=== PATIENT | male | born 1940 | race Caucasian/White ===

== ENCOUNTER → 2016-11-04 | Outpatient (CLI) | payer BC, MEDICARE ==
--- NOTE | 2016-11-04 09:30 | RAD ---
EXAM DESCRIPTION: Foot,Right 3 Views CLINICAL HISTORY: 76 yearsMale, PAIN COMPARISON: None. IMPRESSION: Vascular calcifications noted. Probable osteopenia. Degenerative change seen within the first MTP joint and midfoot. No definitive fracture noted. No definitive radiopaque foreign body. Electronically signed by: Javier Marks MD 11/04/2016 9:29 AM TECHNICAL PROFESSIONAL
== END | disposition home or self-care (01) ==
LOC: RAD 07:35
PROVIDERS: ATTEND Orthopaedic Surgery
DX: M79.671 Pain in right foot (principal)

== ENCOUNTER → 2017-06-26 | Outpatient (CLI) | payer MEDICARE | END | disposition home or self-care (01) | LOC: GMAB 10:46 | PROVIDERS: ATTEND Family Medicine | DX: Z12.5 Encounter for screening for malignant neoplasm of prostate (principal); I10 Essential (primary) hypertension; R94.6 Abnormal results of thyroid function studies | CPT/HCPCS: 84439; 84443; 84481; G0103 ==

== ENCOUNTER → 2017-09-19 | Outpatient (CLI) | payer MEDICARE ==
--- NOTE | 2017-09-22 07:56 | RAD ---
EXAM DESCRIPTION: Hip,Left 2 Views CLINICAL HISTORY: HIP PAIN COMPARISON: None FINDINGS: 2 views of left hip. Total left hip arthroplasty hardware is present in addition to a compression plate with cerclage wires. Hardware is intact. No hardware loosening or failure is demonstrated. No new/acute fractures are present. Bone mineralization appears within normal limits. No gross soft tissue findings. IMPRESSION: Intact total left hip arthroplasty. Electronically signed by: Parish Cerda MD 09/22/2017 7:55 AM [facility]
--- NOTE | 2017-09-22 08:01 | RAD ---
EXAM DESCRIPTION: Pelvis CLINICAL HISTORY: HIP PAIN COMPARISON: None FINDINGS: Single frontal view the pelvis. The pelvic ring is intact. Total left hip arthroplasty is intact. Early/advanced osteoarthritis of the contralateral right hip is seen. Mild bilateral degenerative sacroiliitis is present. Advanced facet arthritis is seen in the lower lumbar spine greater on the left side. Mildly decreased bone mineralization is seen. Atherosclerotic disease noted. IMPRESSION: Negative for acute pelvis pathology. Early advanced osteoarthritis contralateral right hip. Advanced facet arthritis lower lumbar spine can contribute to posterior hip pain. Electronically signed by: Parish Cerda MD 09/22/2017 8:00 AM [facility] [[email or web address]]
== END | disposition home or self-care (01) ==
LOC: RAD 07:59
PROVIDERS: ATTEND Orthopaedic Surgery
DX: M25.552 Pain in left hip (principal)

== ENCOUNTER → 2017-09-29 | Outpatient (CLI) | payer MEDICARE | LOC: GMAB 10:36 | PROVIDERS: ATTEND Family Medicine | DX: R94.6 Abnormal results of thyroid function studies (principal) ==

== ENCOUNTER → 2017-10-07 | Outpatient (CLI) | payer MEDICARE ==
--- NOTE | 2017-10-09 08:44 | RAD ---
EXAM DESCRIPTION: Chest,2 Views CLINICAL HISTORY: SOB COMPARISON: August 03, 2016 TECHNIQUE: PA/lateral FINDINGS: The lungs are well expanded and clear. Chronic elevated right hemidiaphragm is unchanged from prior study with mild crowding of basilar pulmonary markings. No infiltrates or effusions or masses are noted. The left lung is unremarkable The heart is normal in size and shape with no evidence of vascular congestion. Tortuous calcified aortic arch and descending aorta is unchanged The sánchez and mediastinum demonstrate normal contours. The bony spine and chest wall is normal for age in appearance. IMPRESSION: Chronic eventration with crowded basilar markings at the right lung base, unchanged from prior study with no acute cardiopulmonary disease. Electronically signed by: Brown Pickens MD 10/09/2017 8:43 AM TEST RACK OPERATOR
== END ==
LOC: RAD 12:10
PROVIDERS: ATTEND Internal Medicine Interventional Cardiology
DX: R06.02 Shortness of breath (principal)

== ENCOUNTER → 2018-09-24 | Outpatient (CLI) | payer MEDICARE ==
--- NOTE | 2018-09-24 17:08 | CT ---
PROCEDURE: Chest w/o Contrast CLINICAL HISTORY: 78 years Male DYSPNEA COMPARISON: None. TECHNIQUE: Contiguous axial images obtained through the chest without IV contrast. Reformatted images obtained. This exam was performed according to our department optimization program which includes automated exposure control, adjustment of the mA and/or kv according to patient size and/or use of iterative reconstruction technique. FINDINGS: Calcification in aorta which is elongated. Coronary artery calcifications. There is small mediastinal lymph nodes. Hilar regions are not well seen. Elevation of the right hemidiaphragm with atelectasis in segments of the right middle and lower lobe. No evidence of pericardial or pleural effusion. Scarring in the apices. No evidence of lobar consolidation or alveolar infiltrate. IMPRESSION: Elevation of the right hemidiaphragm with atelectasis in segments of the right middle and lower lobe Vascular calcifications Incidental note is made of vertebroplasty changes at L1 and T11 with severe chronic compression at T11 Electronically signed by: Hailey Jean MD 09/24/2018 5:07 PM [employer] F[employer]ER
== END ==
LOC: CT 16:31
PROVIDERS: ATTEND Family Medicine
DX: R06.00 Dyspnea, unspecified (principal); E03.9 Hypothyroidism, unspecified; I10 Essential (primary) hypertension; I48.2 Chronic atrial fibrillation

== ENCOUNTER → 2018-09-25 | Outpatient (CLI) | payer MEDICARE ==
[~2018-09-25] MED LIST: ALBUTEROL SULFATE 2.5 MG/3 ML VIAL NEB ONE
== END ==
LOC: RESP 13:52
PROVIDERS: ATTEND Family Medicine
DX: R06.00 Dyspnea, unspecified (principal)
CPT/HCPCS: 94060; J7611

== ENCOUNTER → 2018-10-14 | Outpatient (CLI) | payer MEDICARE ==
--- NOTE | 2018-10-15 11:38 | US ---
US THYROID CLINICAL STATEMENT: ENLARGED THYROID. . No palpable mass. No previous thyroid surgery or therapy. COMPARISON: None FINDINGS: Size right thyroid lobe: 5.1 x 1.8 x 1.7 cm Size left thyroid lobe: 3.7 x 1.9 x 1.6 cm Size isthmus: 0.3 cm Estimated total number of nodules greater than or equal to 1 cm: None. Nodule 1: Size: 0.7 x 0.5 x 0.3 cm Location: Right Lower Composition: solid or almost completely solid: 2 points Echogenicity: hypoechoic: 2 points Shape: wider than tall: 0 points Margins: smooth: 0 points Echogenic foci: none: 0 points ACR Total Points: 4; ACR TI-RADS risk category: TR4 - moderately suspicious nodule. Nodule 2: Size: 0.7 x 0.5 x 0.3 cm Location: Right Mid Composition: cystic or completely cystic: 0 points Echogenicity: anechoic: 0 points Shape: wider than tall: 0 points Margins: smooth: 0 points Echogenic foci: none: 0 points ACR Total Points: 0; ACR TI-RADS risk category: TR1 - benign nodule Nodule 3: Size: 0.9 x 0.7 x 0.5 cm Location: Left Upper Composition: solid or almost completely solid: 2 points Echogenicity: hypoechoic: 2 points Shape: wider than tall: 0 points Margins: smooth: 0 points Echogenic foci: none: 0 points ACR Total Points: 4; ACR TI-RADS risk category: TR4 - moderately suspicious nodule. Soft tissues around the thyroid gland show no evidence of dominant solid mass or distinct cyst. No parenchymal edema or large calcifications. No overlying skin changes. Normal vascularity. IMPRESSION: 1. Nodule 1: ACR TI-RADS 2017 Category TR4. Recommend: No further follow-up.. Recommendations based upon [facility] Best [employer] recommendations and ACR TI-RADS 2017 guidelines. Please see below*. 2. Nodule 2: ACR TI-RADS 2017 Category TR1. Recommend: No further follow-up. 3. Nodule 3: ACR TI-RADS 2017 Category TR4. Recommend: No further follow-up. 4. The overall gland size is enlarged. Soft tissues around the thyroid gland are unremarkable. *ACR TI-RADS 2017 Recommendations: TR1: No FNA or follow up TR2: No FNA or follow up TR3: FNA if >/= 2.5 cm, follow up if 1.5 - 2.4 cm in 1, 3, and 5 years TR4: FNA if >/= 1.5 cm, follow up if 1.0 - 1.4 cm in 1, 2, 3, and 5 years TR5: FNA if >/= 1.0 cm, follow up if 0.5 - 0.9 cm every year for 5 years ACR TI-RADS recommends that no more than two nodules with the highest ACR TI-RADS total point should be biopsied and no more than four nodules should be followed. Electronically signed by: Uvaldo Perez MD 10/15/2018 11:36 AM [facility]
== END ==
LOC: US 11:45
PROVIDERS: ATTEND Internal Medicine Endocrinology, Diabetes & Metabolism
DX: E04.9 Nontoxic goiter, unspecified (principal)

== ENCOUNTER 2018-11-22 20:39 | Emergency (ER) | payer MEDICARE ==
--- NOTE | 2018-11-22 20:56 | ED.PDOC ---
History of Present Illness - General Time Seen by Provider: 11/22/18 20:45 Source: RN notes reviewed, Vital Signs reviewed, EMS notes reviewed, family Additional Information: 78 YEAR OLD WHITE MALE PRESENTS WITH DIARRHEA VOMIITING FOR FEW DAYS FEW DAYS AGO HIS STOOL WAS POSITIVE FOR BLOOD ACCORDING TO HIS SON HE LIVES AT HOME WITH HIS FAMILY HE IS ON WARFARIN FOR ATRIAL FIBRILLATION LISINOPRIL FOR HYPERTENSION METHIMAZOLE FOR HYPERTHYROIDISM MINOCYCLINE 50 MG Q 12 H PHYSICAL EXAM HE LOOKS CHRONICALLY ILL EMACIATED AWAKE ALERT VS NO FEVER PULSE OX 96- 98 % HE IS HYPERTENSIVE HIS SKIN COLOR IS GREYISH BLACK LOWER EXTREMITIES BUT FEELS WARM UPPER EXTREMITIES FACE IS DUSKY LUNGS BREATH SOUNDS DIMINISHED AT THE BASE NO DISTRESS NOTED ABD SOFT MILD TENDERNESS NO GUARDING OR REBOUND - History of Present Illness Allergies/Adverse Reactions: Allergies NO KNOWN ALLERGY Allergy (Verified 11/22/18 20:59) Home Medications: Ambulatory Orders Minocycline HCl [Minocin] 50 mg PO BID 08/27/14 Lisinopril 10 mg PO DAILY 11/22/18 Methimazole 5 mg PO DAILY 11/22/18 Warfarin Sodium 5 mg PO DAILY 11/22/18 Past Medical History (General) - Patient Medical History Hx Seizures: No Hx Stroke: No Hx Dementia: No Hx Asthma: No Hx of COPD: No Hx Cardiac Disorders: Yes Hx Congestive Heart Failure: No Hx Pacemaker: No Hx Hypertension: Yes Hx Thyroid Disease: No Hx Diabetes: No Hx Gastroesophageal Reflux: No Hx Renal Disease: No Hx Cancer: No Hx of HIV: No Hx Hepatitis C: No Hx MRSA: Yes - Vaccination History Hx Tetanus, Diphtheria Vaccination: No Hx Influenza Vaccination: No Hx Pneumococcal Vaccination: No - Social History Hx Tobacco Use: No Hx Alcohol Use: Yes Hx Substance Use: No Hx Substance Use Treatment: No Hx Depression: No Hx Physical Abuse: No Hx Emotional Abuse: No Hx Suspected Abuse: No - Female History Patient : No Family Medical History - Family History Mother Name: Edilia Ge Living Status: Age at (years of age): 78 Cause of : [place] Hx Family Asthma: No Hx Family Congestive Heart Failure: Yes Hx Family Hypertension: Yes Hx Family Stroke: No Hx Cardiac Disease: Yes Hx Family Diabetes: Yes Hx Family Cancer: No Physical Exam - Physical Exam General Appearance: Emaciated, Ill Appearing Ears, Nose, Throat: hearing grossly normal, normal ENT inspection, normal pharynx Neck: non-tender, full range of motion, supple Respiratory: lungs clear, normal breath sounds, no respiratory distress, no accessory muscle use Cardiovascular/Chest: no edema, tachycardia, irregularly irregular Extremity: normal range of motion, other - BOTH LOWER E XTREMITIES BELOW THE KNEE APPEAR DARK ( IT HAS BEEN LIKE THIS FOR YEARS ACCORDING TO HIM AND FAMILY ) 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, no motor/sensory deficits, alert, normal mood/affect, oriented x 3 Lymphatic: no adenopathy Progress - Results/Orders Results/Orders: Laboratory Tests 11/22/18 11/22/18 11/22/18 20:25 20:25 20:25 WBC 10.4 RBC 6.63 H Hgb 17.0 Hct 52.8 H MCV 79.6 L MCH 25.6 L MCHC 32.2 L RDW 17.0 H Plt Count 195 MPV 9.6 Absolute Neuts (auto) 8.20 H Absolute Lymphs (auto) 1.60 Absolute Monos (auto) 0.50 Absolute Eos (auto) 0.00 Absolute Basos (auto) 0.00 Neutrophils % 79.4 H Lymphocytes % 15.3 L Monocytes % 4.7 Eosinophils % 0.3 L Basophils % 0.3 PT 29.7 H* INR 3.00 H PTT (SP) 35.5 H Sodium 137 Potassium 4.2 Chloride 100 L Carbon Dioxide 25 Anion Gap 16.2 BUN 19 H Creatinine 1.18 BUN/Creatinine Ratio 16.1 Random Glucose 153 H Serum Osmolality 279.1 Calcium 9.9 Total Bilirubin 1.1 H AST 31 ALT 15 Alkaline Phosphatase 140 H Serum Total Protein 8.2 Albumin 4.1 Globulin 4.1 H Albumin/Globulin Ratio 1.0 L PATIENT WAS GIVEN CARDIZEM A BOLUS OF 15 FOLLOWED BY IV INFUSION OF 10 MG / HOUR NO VOMITING IN THE ED LABS CHEST X RAY AND EKG REVIEWED - EKG/XRAY/CT EKG: Atrial, Fibrillation, RVR XRAY: chest - NO OVERT CHF Departure - Departure Clinical Impression: Atrial fibrillation with RVR, Diarrhea, Gastroenteritis Time of Disposition: 22:07 Disposition: Admit Patient Condition: Fair Referrals: ALCIRA JULIAN MD [Primary Care Provider] - 1-2 Weeks Home Medications: Ambulatory Orders Minocycline HCl [Minocin] 50 mg PO BID 08/27/14 Lisinopril 10 mg PO DAILY 11/22/18 Methimazole 5 mg PO DAILY 11/22/18 Warfarin Sodium 5 mg PO DAILY 11/22/18 Comments: DISCUSSED WITH MR KAITLIN FAJARDO WHO ACCEPTED THE PATIENT FOR ADMISSION AND INPATIENT MANAGEMENT
[2018-11-22] MEDS ORDERED: SODIUM CHLORIDE 0.9% 100ML 100 ML IVPB ONE (21:40)
[2018-11-22] MEDS ORDERED: diltiaZEM DRIP 125 MG/25 ML VIAL IVPB ONE (21:41)
--- NOTE | 2018-11-22 21:53 | RAD ---
EXAM DESCRIPTION: Chest,1 View CLINICAL HISTORY: 78 years Male CHF COMPARISON: 10/07/2017. FINDINGS: The cardiomediastinal silhouette appears unremarkable. Atherosclerotic calcifications in the thoracic aorta. Elevation of the right hemidiaphragm with similar atelectasis or scarring at the right lung base. No consolidating infiltrates or pleural effusions. No pneumothorax. Postvertebroplasty changes in the visualized lower thoracic and upper lumbar spine. IMPRESSION: There is similar elevation of the right hemidiaphragm with atelectasis or scarring at the right lung base. No definite acute abnormality is identified. Electronically signed by: Abdoulaye Jean MD 11/22/2018 9:50 PM CDT
[2018-11-22] MEDS ORDERED: ALUM & MAG HYDROX-SIMETHICONE 30 ML, LIDOCAINE VISCOUS 2% 15 ML PO ONE ×2 (21:59)
[2018-11-22] MEDS ORDERED: SUCRALFATE 1 GM/10 ML 1 GM UD PO ONE (21:59)
[2018-11-22] MEDS ORDERED: diltiaZEM DRIP 125 MG in SODIUM CHLORIDE 0.9% 100ML 100 ML IVPB SCH (22:00)
[2018-11-22] MEDS ORDERED: LIDOCAINE HCL 2% (MOUTH-THROAT) 15 ML UD ONE (22:00)
[2018-11-22] MEDS ORDERED: ALUM & MAG HYDROX-SIMETHICONE 30 ML UD ONE (22:00)
[2018-11-22] MEDS ORDERED: ONDANSETRON INJ 4 MG/2 ML VIAL ONE (22:25)
[2018-11-22] MEDS ORDERED: ONDANSETRON INJ 4 MG/2 ML VIAL IV ONE (22:28)
--- NOTE | 2018-11-22 23:44 | CT ---
EXAM DESCRIPTION: CT ABDOMEN AND PELVIS WITH CONTRAST CLINICAL HISTORY: ABD PAIN COMPARISON: 04/27/2015 TECHNIQUE: CT of the abdomen and pelvis performed following IV administration of iodinated contrast DLP: 687.79 mGycm FINDINGS: Lung Bases: Minimal bibasilar dependent atelectasis or scarring. Coronary artery atherosclerosis. Bones: Multilevel lumbar and thoracic kyphoplasty's. Endplate spondylosis, facet arthropathy, degenerative disc height narrowing throughout the thoracic and lumbar spine. Left total hip arthroplasty. Abdomen: Liver: The liver has normal size and density. No intrahepatic mass or biliary dilatation. Gallbladder: Calcified gallstone. Spleen, Pancreas, and Adrenal Glands: The spleen, pancreas, and adrenal glands are unremarkable. Kidneys: The kidneys have normal size and contour without evidence of solid mass or hydronephrosis. Bosniak class I left renal cyst. Vasculature: Aortoiliac atherosclerosis. Abdominal aorta caliber is 2.9 cm. Stent graft within the abdominal aorta. The portal vein is patent. The proximal visceral and renal arteries are patent. Stomach: The stomach is distended. Other: No free intraperitoneal air. Small fat-containing umbilical hernia. Small amount of free fluid. Pelvis: Bladder: Urinary bladder is unremarkable. Bowel: Fluid-filled dilated loops of small bowel throughout the abdomen with mild bowel wall thickening and mesenteric edema. No transition point small bowel. The cecum and proximal ascending colon are fluid-filled. There is circumferential narrowing of the mid ascending colon (best seen on coronal image #78, series #602), distal to which there is a changing caliber small bowel. Scattered diverticula of the colon. Appendix: The appendix is fluid-filled without periappendiceal inflammatory change. Pelvis: Enlarged prostate. IMPRESSION: 1. Findings compatible with bowel obstruction at the level of the mid ascending colon where there is circumferential height narrowing and wall thickening. This finding is concerning for neoplasm however inflammatory or infectious stricture could produce this appearance. 2. 2.9 cm aortic aneurysm post stent graft. Follow-up in 5 years recommended. 3. Enlarged prostate. 4. Diverticulosis without evidence of acute diverticulitis. 5. Cholelithiasis. 6. Small amount of free fluid. Urgent finding reported to Dr. DENICE SANTIAGO at 11/22/2018 11:32 PM CDT This exam was performed according to our departmental dose-optimization program, which includes automated exposure control, adjustment of the mA and/or kV according to patient size and/or use of iterative reconstruction technique. Electronically signed by: Say Adkins 11/22/2018 11:41 PM CDT
[2018-11-23 00:04] VITALS: BP 122/94; TEMP 100.1
[2018-11-23 01:10] VITALS: O2SAT 97
== END 2018-11-23 00:50 | disposition short-term general hospital (02) ==
LOC: ER 20:39
DX: K56.609 Unspecified intestinal obstruction, unspecified as to partial versus complete obstruction (principal); I48.91 Unspecified atrial fibrillation; R00.0 Tachycardia, unspecified; K52.9 Noninfective gastroenteritis and colitis, unspecified; E05.90 Thyrotoxicosis, unspecified without thyrotoxic crisis or storm; I10 Essential (primary) hypertension; I51.9 Heart disease, unspecified; Z79.01 Long term (current) use of anticoagulants; Z79.899 Other long term (current) drug therapy
CPT/HCPCS: 36415; 36600; 71045; 74177; 80053; 82270; 82803; 82805; 83880; 85025; 85610; 85730; J2405; J7050

== ENCOUNTER → 2019-01-14 | Outpatient (CLI) | payer MEDICARE | LOC: GOCC 13:09 | PROVIDERS: ATTEND Family Medicine | DX: A04.72 Enterocolitis due to Clostridium difficile, not specified as recurrent (principal); A41.9 Sepsis, unspecified organism; R19.7 Diarrhea, unspecified ==

== ENCOUNTER 2019-02-01 15:33 | Emergency (ER) | payer MEDICARE ==
[2019-02-01] MEDS ORDERED: SODIUM CHLORIDE 0.9% 1000ML 1,000 ML IVS ONE ×3 (15:56→18:45)
--- NOTE | 2019-02-01 15:58 | ED.PDOC ---
History of Present Illness - General Chief Complaint: General Stated Complaint: weakness Time Seen by Provider: 02/01/19 15:48 Source: patient, family Exam Limitations: no limitations - History of Present Illness Initial Comments: pt has been home from rehab x 2 weeks and has had steady decline in strength. Seen by home health and urged to come to ED for eval. pt had ileosty placed in October 2018 for Colon CA. Has lost 20 lbs of weight x 2 months Severity: moderate Improving Factors: nothing Worsening Factors: nothing Associated Symptoms: malaise, weakness Allergies/Adverse Reactions: Allergies NO KNOWN ALLERGY Allergy (Verified 11/22/18 20:59) Home Medications: Ambulatory Orders Minocycline HCl [Minocin] 50 mg PO BID 08/27/14 Lisinopril 10 mg PO DAILY 11/22/18 Methimazole 5 mg PO DAILY 11/22/18 Warfarin Sodium 5 mg PO DAILY 11/22/18 Review of Systems - Review of Systems Constitutional: States: malaise, weakness. Denies: chills, fever EENTM: States: no symptoms reported Respiratory: Denies: cough, short of breath Cardiology: Denies: chest pain, edema, syncope Gastrointestinal/Abdominal: States: nausea. Denies: vomiting Genitourinary: States: no symptoms reported Musculoskeletal: States: no symptoms reported Skin: States: no symptoms reported Neurological: States: no symptoms reported Past Medical History (General) - Patient Medical History Hx Seizures: No Hx Stroke: No Hx Dementia: No Hx Asthma: No Hx of COPD: No Hx Cardiac Disorders: Yes Hx Congestive Heart Failure: No Hx Pacemaker: No Hx Hypertension: Yes Hx Thyroid Disease: No Hx Diabetes: No Hx Gastroesophageal Reflux: No Hx Renal Disease: No Hx Cancer: No Hx of HIV: No Hx Hepatitis C: No Hx MRSA: Yes - Vaccination History Hx Tetanus, Diphtheria Vaccination: No Hx Influenza Vaccination: No Hx Pneumococcal Vaccination: No - Social History Hx Tobacco Use: No Hx Alcohol Use: Yes Hx Substance Use: No Hx Substance Use Treatment: No Hx Depression: No Hx Physical Abuse: No Hx Emotional Abuse: No Hx Suspected Abuse: No - Female History Patient : No Family Medical History - Family History Mother Name: Edilia Ge Living Status: Age at (years of age): 78 Cause of : [place] Hx Family Asthma: No Hx Family Congestive Heart Failure: Yes Hx Family Hypertension: Yes Hx Family Stroke: No Hx Cardiac Disease: Yes Hx Family Diabetes: Yes Hx Family Cancer: No Physical Exam - Physical Exam General Appearance: Alert, Emaciated, Lethargic, Other - has a silver discoloration to skin which is assisted finding per son Eye Exam: bilateral normal Ears, Nose, Throat: hearing grossly normal, normal pharynx Neck: non-tender, full range of motion Respiratory: lungs clear, no respiratory distress Cardiovascular/Chest: normal peripheral pulses, regular rate, rhythm Gastrointestinal/Abdominal: normal bowel sounds, non tender, soft, other - ileostmy in R abd Extremity: no pedal edema 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 Copy, Patient Portal Self Enrollment Referrals: ALCIRA JULIAN MD [Primary Care Provider] - 1-2 Weeks Home Medications: Ambulatory Orders Minocycline HCl [Minocin] 50 mg PO BID 08/27/14 Lisinopril 10 mg PO DAILY 11/22/18 Methimazole 5 mg PO DAILY 11/22/18 Warfarin Sodium 5 mg PO DAILY 11/22/18 Critical Care Note - Critical Care Note Total Time (mins): 35 Comments: Pt presented with weakness, dehydration. Findings: Hyperkalemia, acute kidney Injury, dehydration; Actions: IV sodium bicarb IVP and IV infusion, Calcium gluconate IV, Dextrose 50% IVP, Reg Insulin 10 units IV; Systems at risk: cardiovascular and Transfer to Outside Facility - Transfer Information Accepting Facility: [facility] Reason for Transfer: required specialist not available - Dr Gsatelum accepted Pt to ED due to no PCU beds available
[2019-02-01] MEDS ORDERED: CALCIUM GLUCONATE INJ 1 GM in SODIUM CHLORIDE 0.9% 50ML 50 ML IVPB ONE (16:46)
[2019-02-01] MEDS ORDERED: DEXTROSE 50% 25 GM/50 ML SYG IV ONE (16:46)
[2019-02-01] MEDS ORDERED: INSULIN, REG.(HUMAN) 100 U/ML VIAL IV ONE (16:46)
[2019-02-01 16:51] VITALS: O2SAT 100
[2019-02-01] MEDS ORDERED: CALCIUM GLUCONATE INJ 1 GM/10 ML VIAL ONE (17:23)
[2019-02-01] MEDS ORDERED: SODIUM CHLORIDE 0.9% 50ML 50 ML ONE (17:24)
[2019-02-01] MEDS ORDERED: SODIUM BICARBONATE VIAL 50 MEQ in DEXTROSE 5% 1000ML 1,000 ML IVS SCH (17:30)
[2019-02-01] MEDS ORDERED: SODIUM BICARBONATE SYRINGE 50 MEQ/50 ML SYG IV ONE (17:31)
[2019-02-01] MEDS: SODIUM BICARBONATE VIAL 50 MEQ/50 ML VIAL IV ONE ×2 (17:55→18:00)
[2019-02-01 18:20] VITALS: TEMP 96.9
[2019-02-01] MEDS ORDERED: DEXTROSE 5% IV PRN (18:21)
[2019-02-01] MEDS ORDERED: SODIUM BICARBONATE IV PRN (18:21)
[2019-02-01] MEDS ORDERED: DEXTROSE 5% 1000ML 1,000 ML IVS ONE (18:39)
[2019-02-01] MEDS ORDERED: SODIUM BICARBONATE VIAL 50 MEQ/50 ML VIAL IV ONE (18:39)
[2019-02-01 19:40] VITALS: BP 90/52
== END 2019-02-01 19:02 | disposition short-term general hospital (02) ==
LOC: ER 15:33
DX: N17.9 Acute kidney failure, unspecified (principal); E87.5 Hyperkalemia; I48.91 Unspecified atrial fibrillation; I51.9 Heart disease, unspecified; I10 Essential (primary) hypertension; Z79.01 Long term (current) use of anticoagulants; Z79.899 Other long term (current) drug therapy; Z93.2 Ileostomy status; Z85.038 Personal history of other malignant neoplasm of large intestine
CPT/HCPCS: 36415; 80053; 83605; 85025; 93005; A4216; J7030; J7060; J7799